=== PATIENT | female | born 1935 | race Caucasian/White ===

== ENCOUNTER → 2016-08-28 | Outpatient (CLI) | payer MEDICARE, BC ==
[~2016-08-28] MED LIST: TELM40TA2 PO
--- NOTE | 2016-08-28 21:34 | HKNOTE ---
DATE OF SERVICE: 08/28/2016 INTERVAL HISTORY: The patient presents today for a followup evaluation on her right hip. 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 She is doing well overall. She is at the [facility]. She is progressing with physical therapy and is actually inquiring to do more PT. She denies any fevers , chills. She denies any significant pain. She presents today for her first postoperative evaluation. PHYSICAL EXAMINATION: On exam today, she is alert and oriented x4 and in no acute distress. She is able to ambulate with a front-wheel walker. Exam of the incision demonstrates it to be clean, dry and intact. Rogers are in place. There is no pus or drainage noted. No erythema or soft-tissue swelling. Compartments are otherwise soft. Homans sign is negative. She is neurovascularly intact distally. IMAGING: X-rays done at outside facility demonstrate the prosthesis to be in place. There is no fracture or dislocation identified. There is good anatomic alignment. ASSESSMENT: Thirteen days status post right bipolar hemiarthroplasty. DISCUSSION: The margot were removed, and Steri-Strips were applied today. The patient is able to ambulate using a front-wheel walker as tolerated. She is to continue physical therapy at the [facility]. Discharge planning has been initiated. The patient is to continue aspirin for DVT prophylaxis. We will see her back in 4 weeks for repeat evaluation and x-ray. Dictated By: FLAKO AGUILAR for CALLI MARTINEZ/SEYMOUR Conf#: [id number] DID#: [id number] ANDREA
== END | disposition home or self-care (01) ==
LOC: HKI 10:16
PROVIDERS: ATTEND Orthopaedic Surgery
DX: S72.031D Displaced midcervical fracture of right femur, subsequent encounter for closed fracture with routine healing (principal); R26.2 Difficulty in walking, not elsewhere classified; Z96.641 Presence of right artificial hip joint

== ENCOUNTER → 2016-09-25 | Outpatient (CLI) | END | disposition home or self-care (01) | DX: Z09 Encounter for follow-up examination after completed treatment for conditions other than malignant neoplasm (principal); S72.031D Displaced midcervical fracture of right femur, subsequent encounter for closed fracture with routine healing; Z96.641 Presence of right artificial hip joint ==

== ENCOUNTER → 2016-11-27 | Outpatient (CLI) | payer MEDICARE, BC ==
--- NOTE | 2016-11-28 13:53 | RADRPT ---
PROCEDURE: XR Right hip and pelvis. CLINICAL INDICATION: Right hip pain. Pelvic pain. Postop. TECHNIQUE: Three views. Frontal pelvis. Frontal and lateral right hip. COMPARISON: 09/25/2016. FINDINGS: There is no fracture or dislocation. The soft tissues are normal. There is a right hip hemiarthroplasty which appears satisfactory. The left hip is grossly normal. 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 There is no lytic or blastic lesion. The sacroiliac joints are unremarkable. IMPRESSION: 1. Satisfactory postoperative appearance of the right hip. 2. Grossly normal appearance of the left hip. 3. Degenerative changes of the lower lumbar spine. RPTAT: QQ .Harjit Ivy MD, MD Date Time Electronically viewed and signed by .Harjit Ivy MD, on 11/28/2016 13:53 .R/
== END | disposition home or self-care (01) ==
LOC: HKI 13:20
PROVIDERS: ATTEND Orthopaedic Surgery
DX: Z09 Encounter for follow-up examination after completed treatment for conditions other than malignant neoplasm (principal); M25.551 Pain in right hip; R10.2 Pelvic and perineal pain; Z96.641 Presence of right artificial hip joint
CPT/HCPCS: 73502; G0463

== ENCOUNTER → 2017-01-31 | Outpatient (CLI) | payer MEDICARE, BC ==
--- NOTE | 2017-01-31 15:02 | RADRPT ---
PROCEDURE: XR Right hip and pelvis. CLINICAL INDICATION: Right hip pain. Pelvic pain. Postop. TECHNIQUE: Three views. Frontal pelvis. Frontal and lateral right hip. COMPARISON: 11/27/2016. FINDINGS: There is no fracture or dislocation. The soft tissues are normal. There is a right hip hemiarthroplasty which appears satisfactory. The left hip is grossly normal. There is no lytic or blastic lesion. The upper pelvis is not completely included on the image. IMPRESSION: 1. Satisfactory postoperative appearance of the right hip. 2. Grossly normal appearance of the left hip. RPTAT: QQ .Harjit Ivy MD, MD Date Time Electronically viewed and signed by .Harjit Ivy MD, on 01/31/2017 15:02 .R/
== END | disposition home or self-care (01) ==
LOC: HKI 09:20
PROVIDERS: ATTEND Orthopaedic Surgery
DX: S70.01XD Contusion of right hip, subsequent encounter (principal); W01.0XXD Fall on same level from slipping, tripping and stumbling without subsequent striking against object, subsequent encounter; Z96.641 Presence of right artificial hip joint
CPT/HCPCS: 73502; G0463

== ENCOUNTER → 2017-02-26 | Outpatient (CLI) | payer MEDICARE, BC ==
--- NOTE | 2017-02-26 16:39 | RADRPT ---
PROCEDURE: XR Right hip and pelvis. CLINICAL INDICATION: Right hip pain. Pelvic pain. Postop. TECHNIQUE: Three views. Frontal pelvis. Frontal and lateral right hip. COMPARISON: No prior studies are available for comparison. FINDINGS: There is no fracture or dislocation. The soft tissues are normal. There is a right hip hemiarthroplasty which appears satisfactory. The left hip is grossly normal. There is no lytic or blastic lesion. The upper pelvis is not completely included on the image. IMPRESSION: 1. Satisfactory postoperative appearance of the right hip. 2. Grossly normal appearance of the left hip. RPTAT: QQ .Harjit Ivy MD, MD Date Time Electronically viewed and signed by .Harjit Ivy MD, MD on 02/26/2017 16:39 .R/
== END | disposition home or self-care (01) ==
LOC: HKI 13:13
PROVIDERS: ATTEND Orthopaedic Surgery
DX: Z47.89 Encounter for other orthopedic aftercare (principal); Z96.641 Presence of right artificial hip joint
CPT/HCPCS: 73502; G0463

== ENCOUNTER → 2017-10-29 | Outpatient (CLI) | END | disposition home or self-care (01) ==